=== PATIENT | female | born 1940 | race Asian ===

== ENCOUNTER → 2017-03-14 | Outpatient (CLI) | payer MEDICARE, OTHER ==
[~2017-03-14] MED LIST: ASPI81 PO; LISI-662 PO; METF500T4 PO; PIOG45TA PO; PROP10 PO; SIMV-261 PO
== END | disposition home or self-care (01) ==
LOC: RADPV 11:50
PROVIDERS: ATTEND Legal Medicine
DX: M19.072 Primary osteoarthritis, left ankle and foot (principal); M77.32 Calcaneal spur, left foot; M25.775 Osteophyte, left foot

== ENCOUNTER → 2017-08-15 | Outpatient (CLI) | payer MEDICARE, OTHER ==
[~2017-08-15] MED LIST changes: -PIOG45TA PO; +PIOG45TA4 PO; -PROP10 PO; +PROP10TA73 PO
== END | disposition home or self-care (01) ==
LOC: RADPV 10:08
PROVIDERS: ATTEND Legal Medicine
DX: I35.8 Other nonrheumatic aortic valve disorders (principal); I51.7 Cardiomegaly
CPT/HCPCS: 93306

== ENCOUNTER → 2017-10-05 | Outpatient (CLI) | payer MEDICARE, OTHER ==
[~2017-10-05] MED LIST changes: +GADOBUTROL 1 MMOL/ML 10 ML VIAL IVP ONE
== END | disposition home or self-care (01) ==
LOC: RADMN 10:32
PROVIDERS: ATTEND Legal Medicine
DX: D32.0 Benign neoplasm of cerebral meninges (principal); Q85.9 Phakomatosis, unspecified; D86.9 Sarcoidosis, unspecified; D35.2 Benign neoplasm of pituitary gland
CPT/HCPCS: 70553; A9585